=== PATIENT | male | born 1955 | race Caucasian/White ===

== ENCOUNTER 2017-03-14 03:18 | Emergency (ER) | payer SELFPAY ==
[~2017-03-14] VITALS: Ht 182.9 cm; Wt 68.0 kg
[2017-03-14 03:31] LABS: BASO # 0.1 x10^3/uL (0.0-0.2); BASO % 1 % (0-3); EOS % 1 % (0-3); HEMATOCRIT 42.7 % (39.0-53.0); HEMOGLOBIN 14.6 g/dL (13.0-17.5); LYMPH # 3.4 x10^3/uL (1.0-4.8); LYMPH % 35 % (24-48); MEAN CORPUSCULAR HEMOGLOBIN 33 pg (25-35); MEAN CORPUSCULAR HGB CONC 34 g/dL (31-37); MEAN CORPUSCULAR VOLUME 98 fL (79-100); MONO % 16 % (0-9); NEUT % 47 % (31-73); PLATELET COUNT 115 x10^3/uL (140-400); RED BLOOD COUNT 4.36 x10^6/uL (4.30-5.70); RED CELL DISTRIBUTION WIDTH 13.2 % (11.5-14.5); WHITE BLOOD COUNT 9.7 x10^3/uL (4.0-11.0)
[2017-03-14 03:40] LABS: CALCIUM 8.7 mg/dL (8.5-10.1); CREATININE 0.6 mg/dL (0.7-1.3); GFR 136.5
[2017-03-14 03:46] LABS: ALBUMIN 3.4 g/dL (3.4-5.0); ALBUMIN/GLOBULIN RATIO 0.9 (1.0-1.7); TOTAL BILIRUBIN 0.4 mg/dL (0.2-1.0); TOTAL PROTEIN 7.4 g/dL (6.4-8.2)
[2017-03-14] MEDS ORDERED: methylPREDNISolone SOD SUCC PF 125 MG/2 ML VIAL. IV ONE (04:30)
[2017-03-14] MEDS ORDERED: KETOROLAC 15 MG/ML VIAL. IV ONE (04:30)
[2017-03-14] MEDS ORDERED: IPRATRPIUM/ALBUTEROL 0.5/2.5MG 3 ML NEBU. NEB ONE (04:30)
[2017-03-14 05:00] VITALS: BP 128/79
[2017-03-14] MEDS ORDERED: AZIT250T PO (05:04)
[2017-03-14] MEDS ORDERED: VENTOLIN HFA18 GM INH (05:04)
[2017-03-14] MEDS ORDERED: PRED50TA PO (05:04)
--- NOTE | 2017-03-14 05:04 | PHYS DOC ---
Past Medical History Past Medical History: No Pertinent History Past Surgical History: No Surgical History Alcohol Use: Heavy Drug Use: None Adult General Chief Complaint Chief Complaint: CHEST PAIN HPI HPI Patient is a 61 year old gentleman who presents here today complaining of shortness of breath for 2-3 days. Patient plenty right-sided chest pain. Patient complaining of a nonproductive cough. Patient denies any nausea or vomiting. Patient has any fevers shakes chills. Patient has any abdominal pain. Patient has no history of hypertension diabetes liver lung or kidney problems. Patient denies any history of COPD however he has not seen a physician in several years. Patient reports he still smokes a pack a day of tobacco. No alcohol or drugs. Patient reports he had 2 beers earlier today. Patient's physical exam is significant for mild expiratory wheezing. Patient's reproducible tenderness to palpation to his right anterior chest wall. Patient' s lungs are otherwise clear. Heart was regular rate and rhythm. Abdomen was benign. Soft nontender no rebound or guarding. Extremities without clubbing cyanosis or edema. Constitutional: Denies fever or chills [] Eyes: Denies change in visual acuity, redness, or eye pain [] All other review systems are negative except as documented in the history of present illness portion. Constitutional: Well developed, well nourished, no acute distress, non-toxic appearance. [] HENT: Normocephalic, atraumatic, bilateral external ears normal, oropharynx moist, no oral exudates, nose normal. [] Eyes: EOMI, conjunctiva normal, no discharge. [] Neck: Normal range of motion, supple, no stridor. [] Cardiovascular:Heart rate regular rhythm Lungs & Thorax: Bilateral breath sounds clear to auscultation wheezing cleared after neb treatment. Abdomen: Bowel sounds normal, soft, no tenderness, no masses, no pulsatile masses. [] Skin: Warm, dry, no erythema Back: No tenderness, no CVA tenderness. [] Extremities: No tenderness, no cyanosis, no clubbing, ROM intact, no edema. [] Neurologic: Alert and oriented X 3, normal motor function, normal sensory function, no focal deficits noted. [] Psychologic: Affect normal, judgement normal, mood normal. [] Assessment and plan this is a 61-year-old gentleman who presents here today complaining of right-sided anterior chest wall pain and shortness of breath. Patient's exam and chest x-ray are consistent with COPD. In the ER the patient was given Solu-Medrol and albuterol/Atrovent DuoNeb patient's lungs are currently clear after the treatments. Patient's labs were all within normal limits. Patient's chest x-ray did not reveal a pneumonia. Patient most likely has bronchitis with COPD. Patient be discharged home with Zithromax, prednisone , and albuterol inhaler. Patient be given a list of primary care physicians here so he can follow up with her primary care physician. Chest x-ray reveals hyperinflated chest. No infiltrates or effusions. No pneumothorax. EKG reveals normal sinus rhythm at a heart rate of [address]-T wave abnormalities. No STEMI. Current Medications Current Medications Current Medications Medications (Trade) Dose Ordered Sig/Guillermo Start Time Stop Time Status Last Admin Dose Admin Albuterol/ Ipratropium (Duoneb) 3 ml 1X ONCE 03/14/17 04:30 03/14/17 04:31 DC 03/14/17 04:24 3 ML Ketorolac Tromethamine (Toradol) 15 mg 1X ONCE 03/14/17 04:30 03/14/17 04:31 DC 03/14/17 04:55 15 MG Methylprednisolone Sodium Succinate (SOLU-Medrol 125MG VIAL) 125 mg 1X ONCE 03/14/17 04:30 03/14/17 04:31 DC 03/14/17 04:54 125 MG Allergies Allergies Allergies Coded Allergies Type Severity Reaction Last Updated Verified No Known Drug Allergies 03/14/17 No Current Patient Data Vital Signs Vital Signs Date Time Temp Pulse Resp B/P (MAP) Pulse Ox O2 Delivery O2 Flow Rate FiO2 03/14/17 04:22 94 Room Air 03/14/17 03:27 98.2 91 23 162/100 (120) 98.2 Lab Values Laboratory Tests Test 03/14/17 03:24 White Blood Count 9.7 x10^3/uL (4.0-11.0) Red Blood Count 4.36 x10^6/uL (4.30-5.70) Hemoglobin 14.6 g/dL (13.0-17.5) Hematocrit 42.7 % (39.0-53.0) Mean Corpuscular Volume 98 fL (79-100) Mean Corpuscular Hemoglobin 33 pg (25-35) Mean Corpuscular Hemoglobin Concent 34 g/dL (31-37) Red Cell Distribution Width 13.2 % (11.5-14.5) Platelet Count 115 x10^3/uL (140-400) L Neutrophils (%) (Auto) 47 % (31-73) Lymphocytes (%) (Auto) 35 % (24-48) Monocytes (%) (Auto) 16 % (0-9) H Eosinophils (%) (Auto) 1 % (0-3) Basophils (%) (Auto) 1 % (0-3) Neutrophils # (Auto) 4.6 x10^3uL (1.8-7.7) Lymphocytes # (Auto) 3.4 x10^3/uL (1.0-4.8) Monocytes # (Auto) 1.6 x10^3/uL (0.0-1.1) H Eosinophils # (Auto) 0.1 x10^3/uL (0.0-0.7) Basophils # (Auto) 0.1 x10^3/uL (0.0-0.2) Sodium Level 135 mmol/L (136-145) L Potassium Level 4.0 mmol/L (3.5-5.1) Chloride Level 97 mmol/L (98-107) L Carbon Dioxide Level 27 mmol/L (21-32) Anion Gap 11 (6-14) Blood Urea Nitrogen 3 mg/dL (8-26) L Creatinine 0.6 mg/dL (0.7-1.3) L Estimated GFR (Cockcroft-Gault) 136.5 BUN/Creatinine Ratio 5 (6-20) L Glucose Level 131 mg/dL (70-99) H Calcium Level 8.7 mg/dL (8.5-10.1) Total Bilirubin 0.4 mg/dL (0.2-1.0) Aspartate Amino Transferase (AST) 81 U/L (15-37) H Alanine Aminotransferase (ALT) 58 U/L (16-63) Alkaline Phosphatase 97 U/L (46-116) Troponin I Quantitative < 0.017 ng/mL (0.000-0.055) Total Protein 7.4 g/dL (6.4-8.2) Albumin 3.4 g/dL (3.4-5.0) Albumin/Globulin Ratio 0.9 (1.0-1.7) L Laboratory Tests 03/14/17 03:24 Laboratory Tests 03/14/17 03:24 EKG EKG [] Radiology/Procedures Radiology/Procedures [] Course & Med Decision Making Course & Med Decision Making Pertinent Labs and Imaging studies reviewed. (See chart for details) [] Dragon Disclaimer Dragon Disclaimer This electronic medical record was generated, in whole or in part, using a voice recognition dictation system. Departure Departure Impression: Primary Impression: COPD exacerbation Additional Impression: Bronchitis Disposition: HOME, SELF-CARE Condition: IMPROVED Referrals: NO PCP (PCP) Patient Instructions: Chest Wall Pain, Chronic Obstructive Pulmonary Disease Scripts Azithromycin (ZITHROMAX) 250 Mg Tablet 1 PKG PO UD, #6 TAB Prov: MELITON HUBER MD 03/14/17 Prednisone (PREDNISONE) 50 Mg Tablet 1 TAB PO DAILY, #5 TAB Prov: MELITON HUBER MD 03/14/17 Albuterol Sulfate (VENTOLIN HFA INHALER) 18 Gm Hfa.aer.ad 2 PUFF INH QID Y for WHEEZING, #1 INHALER 0 Refills Prov: MELITON HUBER MD 03/14/17 Problem Qualifiers MELITON HUBER MD Mar 14, 2017 05:04
--- NOTE | 2017-03-14 06:10 | EKG ---
[facility] [address] [place] [address] Test Date: 2017-03-14 Test Time: 03:22:55 Pat Name: BOBO ORTIZ Department: Room: Gender: M Apparel Fashion Designer: : [id number] Requested By: MELITON HUBER Order Number: [id number] Reading MD: Desmond Szymanski Measurements Intervals [place] Rate: 88 P: 90 WY: 144 QRS: 78 QRSD: 90 T: 83 QT: 354 QTc: 432 Interpretive Statements SINUS RHYTHM LEFT ATRIAL ABNORMALITY QRS(T) CONTOUR ABNORMALITY CONSIDER ANTEROLATERAL MYOCARDIAL DAMAGE ABNORMAL ECG Electronically Signed On 03-20-2017 14:55:54 CDT by Desmond Szymanski
--- NOTE | 2017-03-14 07:25 | RAD ---
Portable chest, 03/14/2017: History: Chest pain Comparison is made to a study from 11/17/2009. The heart size and pulmonary vascularity are normal. Granulomatous calcifications are again noted. No acute infiltrate is seen. There is no evidence of pleural fluid. IMPRESSION: No acute cardiopulmonary abnormality is detected.
== END 2017-03-14 05:20 | disposition home or self-care (01) ==
LOC: ER 03:18
DX: J44.1 Chronic obstructive pulmonary disease with (acute) exacerbation (principal)
CPT/HCPCS: 36415; 71010; 80053; 84484; 85027; 93005; 94640; 96374; 96375; 99285; J1885; J2930; J7620